=== PATIENT | female | born 1935 | race Caucasian/White ===

== ENCOUNTER 2016-09-16 17:00 | Emergency (ER) | payer MEDICARE, BC ==
[2016-09-16] MEDS ORDERED: DILAUDID 1 MG/ML AMP ONE (17:47)
[2016-09-16] MEDS ORDERED: ONDANSETRON 4 MG VIAL ONE (17:47)
== END 2016-09-16 20:30 | disposition home or self-care (01) ==
LOC: ER 17:00
DX: M16.11 Unilateral primary osteoarthritis, right hip (principal)
CPT/HCPCS: 72100; 73502; 96374; 96375; 99284; J1170; J2405

== ENCOUNTER 2016-09-18 08:01 | Emergency (ER) | payer MEDICARE, BC ==
[2016-09-18] MEDS ORDERED: KETOROLAC 30 MG/ML VIAL ONE (08:16)
[2016-09-18] MEDS ORDERED: TDaP 0.5 ML VIAL IM.VACC ONE (08:20)
[2016-09-18] MEDS ORDERED: MORPHINE 2 MG/ML SYR ONE (09:21)
== END 2016-09-18 10:43 | disposition home or self-care (01) ==
LOC: ER 08:01
DX: M54.5 Low back pain (principal); S32.029A Unspecified fracture of second lumbar vertebra, initial encounter for closed fracture; S50.811A Abrasion of right forearm, initial encounter; W19.XXXA Unspecified fall, initial encounter; Y92.009 Unspecified place in unspecified non-institutional (private) residence as the place of occurrence of the external cause; Z23 Encounter for immunization
CPT/HCPCS: 72100; 72170; 73050; 90471; 96372; 99284; J1885